=== PATIENT | male | born 1940 | race Caucasian/White ===

== ENCOUNTER → 2016-10-12 | Day surgery (SDC) | payer MEDICARE, OTHER | LOC: RAD 09:43 | PROVIDERS: ATTEND Orthopaedic Surgery | PROC: 05HB33Z Insertion of Infusion Device into Right Basilic Vein, Percutaneous Approach (ICD-10-PCS; principal; 2016-10-12) | DX: M86.042 Acute hematogenous osteomyelitis, left hand (principal) | CPT/HCPCS: 36569; 77001; 76937; J1642 ==

== ENCOUNTER 2019-04-30 09:41 | Inpatient (IN) | payer MEDICARE, OTHER ==
[2019-04-30] MEDS ORDERED: DIPH/PERTUSS(ACELL)/TETANUS VAC/PF 0.5 ML SYR (>=10YO) IM ONE (10:20)
[2019-04-30] MEDS ORDERED: NORMAL SALINE 500 ML IV ONE (10:22)
[2019-04-30 10:25] LABS: ABSOLUTE EOSINOPHILS # (AUTO) 0.2 10^3/uL (0.0-0.6); ABSOLUTE LYMPHOCYTES (AUTO) 1.1 10^3/uL (0.5-4.7); ABSOLUTE MONOCYTES (AUTO) 0.5 10^3/uL (0.1-1.4); ABSOLUTE NEUT (AUTO) 5.5 10^3/uL (1.7-8.2); BASOPHILS % (AUTO) 0.2 % (0-2); EOSINOPHILS % (AUTO) 2.4 % (0-6); HEMATOCRIT 26.7 % (37.9-51.0); HEMOGLOBIN 8.1 g/dL (13.5-17.0); LYMPHOCYTES % (AUTO) 14.6 % (13-45); MEAN CORPUSCULAR HGB CONC 30.3 g/dL (32.0-36.0); MEAN CORPUSCULAR VOLUME 73 fl (80-97); MONOCYTES % (AUTO) 7.1 % (3-13); PLATELET COUNT 221 10^3/uL (150-450); RED BLOOD COUNT 3.66 10^6/uL (4.35-5.55); SEGMENTED NEUTROPHILS % (AUTO) 75.7 % (42-78); TOTAL CELLS COUNTED % (AUTO) 100 %; WHITE BLOOD COUNT 7.3 10^3/uL (4.0-10.5)
--- NOTE | 2019-04-30 10:28 | ER Document Report ---
ED General - General Chief Complaint: Fall Stated Complaint: FALL/LACERATION Time Seen by Provider: 04/30/19 10:05 Primary Care Provider: SARAH BENNETT DO [Primary Care Provider] - Follow up as needed TRAVEL OUTSIDE OF THE [place] IN LAST 30 DAYS: No - HPI Notes: 78-year-old male transported here via EMS after experiencing possible syncopal episode and fall with minor head injury. This gentleman has a history of chronic atrial fibrillation and is on Eliquis and aspirin. He was sitting on a stool in the front of a local [employer] [place] about 30 minutes ago and sa ys that he felt fine at that time. The next thing he knew bystanders were getting him up off the floor and had called EMS reporting he had fallen from the stool. He has no memory of the episode. He denies headache, nausea, or vomiting. EMS noted initial blood pressure 70/30. When they got him in the truck and started IV fluids his systolic was up to 130. He appeared well otherwise during transport other than a superficial laceration of the right eyebrow area. He denies any extremity pain specifically denies hip joint pain or back pain. He denies neck pain. Last tetanus booster is unknown. Patient denies use of cane or walker. Patient denies prior known history of syncope presyncope or falls. Denies any known history of thromboembolic disease. Pertinent prior history: Chronic atrial fibrillation. Multiple past cardiac stents. Recent resection of colorectal cancer by laparoscopic surgery advised him to at [facility]. - Related Data Allergies/Adverse Reactions: No Known Allergies Allergy (Verified 04/30/19 09:52) Past Medical History - General Information source: Patient, Relative, Emergency Med Personnel - Social History Smoking Status: Smoker,Current Status Unk Drug Abuse: None Lives with: Family Family History: CAD - Past Medical History Cardiac Medical History: Reports: Hx Atrial Fibrillation, Hx Coronary Artery Disease Denies: Hx DVT, Hx Pulmonary Embolism Neurological Medical History: Denies: Hx Cerebrovascular Accident, Hx Seizures GI Medical History: Reports: Other - Recent history of surgery for colorectal cancer Musculoskeletal Medical History: Reports Hx Arthritis Past Surgical History: Reports: Other - Laparoscopic surgery for colorectal cancer Review of Systems - Review of Systems Notes: Constitutional: Negative for fever. HENT: Negative for sore throat. Eyes: Negative for visual changes. Cardiovascular: Negative for chest pain. Respiratory: Negative for shortness of breath. Gastrointestinal: Negative for abdominal pain, vomiting or diarrhea. Genitourinary: Negative for dysuria. Musculoskeletal: Negative for back pain. Skin: Negative for rash. Neurological: Negative for headaches, weakness or numbness. 10 point ROS negative except as marked above and in HPI. Physical Exam - Vital signs Vitals: Temp Pulse Resp BP Pulse Ox 97.7 F 68 17 131/70 H 100 04/30/19 09:50 04/30/19 09:50 04/30/19 09:50 04/30/19 09:50 04/30/19 09:50 GENERAL: Well-developed well-nourished elderly man appearing in no acute distress. SKIN: Good turgor no rashes. HEAD: Patient has a 1 cm laceration lateral aspect of the right eyebrow. Crusted blood here with no active bleeding. EYES: PERRLA. EOMI. Conjunctivae and sclerae clear. EARS: CANALS AND TMS CLEAR. NOSE: CLEAR. MOUTH: Moist mucosa. Dentures present. No stridor or edema. No drooling. Throat: Clear NECK: Supple. No masses or thyromegaly. No adenopathy. Carotids 2+ without bruits. No JVD. BACK: Symmetrical without tenderness. CHEST: Respirations unlabored. Breath sounds clear and symmetrical. Pacemaker present left anterior chest wall. HEART: Cardiac rhythm irregularly irregular. No murmur gallop or rub. ABDOMEN: Soft nontender without masses, organomegaly or rebound. Bowel sounds normally active. No bruits. Healed laparoscopy port scars present. GENITALIA: Deferred. EXTREMITIES: Moderate degenerative changes in phalangeal joints both hands area. No edema. No calf tenderness. Cap refill less than 1.5 seconds. Dorsalis pedis and posterior tibial pulses 3+ and symmetrical. NEUROLOGICAL: GCS 15. Alert and oriented x3. Normal gait. Fluent speech. Cranial nerves II through XII intact with exception of moderate hearing impairment bilaterally. Sensory, motor and cerebellar normal. Normal tone. Course - Vital Signs Vital signs: Temp Pulse Resp BP Pulse Ox 97.7 F 68 28 H 133/69 H 99 04/30/19 09:50 04/30/19 09:50 04/30/19 10:05 04/30/19 10:05 04/30/19 10:05 - Laboratory Result Diagrams: 04/30/19 09:40 04/30/19 09:40 Laboratory results interpreted by me: 04/30/19 04/30/19 09:40 09:40 RBC 3.66 L Hgb 8.1 L Hct 26.7 L MCV 73 L MCH 22.0 L MCHC 30.3 L RDW 19.0 H BUN 25 H Creatinine 1.51 H Est GFR ( Amer) 54 L Est GFR (MDRD) Non-Af 45 L Glucose 182 H - EKG Interpretation by Me Rhythm: A.Fib, Other - Rate 70 with intermittent paced beats Additional EKG results interpreted by me: 04/30/19 10:[address] changes. Procedures - Laceration/Wound Repair Right Face Time completed: 13:10 Wound length (cm): 3.5 Wound's Depth, Shape: Superficial, Linear Laceration pre-procedure: Betadine prep applied Wound explored: Clean Irrigated w/ Saline (mLs): 50 Wound Repaired With: Dermabond Complications: No Adult Head Front/Back picture: 1 - 3.5 cm Discharge - Discharge Clinical Impression: Syncope and collapse Anemia Qualifiers: Anemia type: iron deficiency Iron deficiency anemia type: chronic blood loss Qualified Code(s): D50.0 - Iron deficiency anemia secondary to blood loss (chronic) Disposition: ADMITTED INPATIENT Admitting Provider: Yulissa (Hospitalist) Unit Admitted: Telemetry Referrals: SARAH BENNETT DO [Primary Care Provider] - Follow up as needed
[2019-04-30 10:31] LABS: ALBUMIN 4.1 g/dL (3.5-5.0); ALKALINE PHOSPHATASE 91 U/L (38-126); ANION GAP 12 (5-19); ASPARTATE AMINO TRANSFERASE 56 U/L (17-59); BILIRUBIN,DIRECT 0.1 mg/dL (0.0-0.4); BILIRUBIN,TOTAL 0.4 mg/dL (0.2-1.3); BLOOD UREA NITROGEN 25 mg/dL (7-20); CALCIUM 9.4 mg/dL (8.4-10.2); CARBON DIOXIDE 24 mmol/L (22-30); CHLORIDE 105 mmol/L (98-107); CREATINE KINASE 57 U/L (55-170); GLUCOSE 182 mg/dL (75-110); POTASSIUM 4.4 mmol/L (3.6-5.0); TOTAL PROTEIN 7.2 g/dL (6.3-8.2)
[2019-04-30 10:41] LABS: CREATINE KINASE MB 0.89 ng/mL (<4.55); TROPONIN I 0.012 ng/mL
--- NOTE | 2019-04-30 10:52 | RADIOLOGY REPORT (SQ) ---
EXAM DESCRIPTION: CT HEAD WITHOUT COMPLETED DATE/TIME: 04/30/2019 10:27 am REASON FOR STUDY: fall on blood thinner COMPARISON: None. TECHNIQUE: Axial images acquired through the brain without intravenous contrast. Images reviewed wi th bone, brain and subdural windows. Additional sagittal and coronal reconstructions were generated. Images stored on PACS. All CT scanners at this facility use dose modulation, iterative reconstruction, and/or weight based d osing when appropriate to reduce radiation dose to as low as reasonably achievable (ALARA). [facility]: Dose Right [facility]: CareDose [facility]: Dose Right [facility]: Teradose 4D [facility]: Smart [employer] RADIATION DOSE: CT Rad equipment meets quality standard of care and radiation dose reduction techniq ues were employed. CTDIvol: 53.2 mGy. DLP: 991 mGy-cm.mGy. LIMITATIONS: None. FINDINGS: VENTRICLES: Prominent. CEREBRUM: No masses. No hemorrhage. No midline shift. Areas of low density in the white matter mos t likely due to chronic micro-vascular ischemic change. No evidence for acute infarction. CEREBELLUM: No masses. No hemorrhage. No alteration of density. No evidence for acute infarction. EXTRAAXIAL SPACES: Age-related involutional change. No fluid collections. No masses. ORBITS AND GLOBE: No intra- or extraconal masses. Normal contour of globe without masses. CALVARIUM: No fracture. PARANASAL SINUSES: Left maxillary sinus disease. SOFT TISSUES: No mass or hematoma. OTHER: No other significant finding. IMPRESSION: CHRONIC CHANGES OF ATROPHY AND MICROVASCULAR ISCHEMIA. NO ACUTE PROCESS. EVIDENCE OF ACUTE STROKE: NO. TECHNICAL DOCUMENTATION: JOB ID: [id number] Quality ID # [id number]: Final reports with documentation of one or more dose reduction techniques (e.g., Au tomated exposure control, adjustment of the mA and/or kV according to patient size, use of iterative reconstruction technique) 2010 Dr. Z- All Rights Reserved Reading location - IP/workstation name: [email or web address]
--- NOTE | 2019-04-30 10:53 | RADIOLOGY REPORT (SQ) ---
EXAM DESCRIPTION: CT CERVICAL SPINE WITHOUT COMPLETED DATE/TIME: 04/30/2019 10:27 am REASON FOR STUDY: fall on blood thinner COMPARISON: None. TECHNIQUE: Axial images acquired through the cervical spine without intravenous contrast. Images re viewed with lung, soft tissue and bone windows. Reconstructed coronal and sagittal MPR images review ed. Images stored on PACS. All CT scanners at this facility use dose modulation, iterative reconstruction, and/or weight based d osing when appropriate to reduce radiation dose to as low as reasonably achievable (ALARA). [facility]: Dose Right [facility]: CareDose [facility]: Dose Right [facility]: Teradose 4D [facility]: Smart [employer] RADIATION DOSE: CT Rad equipment meets quality standard of care and radiation dose reduction techniq ues were employed. CTDIvol: 18.6 mGy. DLP: 416 mGy-cm. mGy. LIMITATIONS: None. FINDINGS: ALIGNMENT: Anatomic. MINERALIZATION: Normal. VERTEBRAL BODIES: No fractures or dislocation. DISCS: Multilevel disc space narrowing with osteophytes. FACETS, LATERAL MASSES, POSTERIOR ELEMENTS: Facet arthropathy. No fractures. No dislocation. No ac [place] findings. HARDWARE: None in the spine. VISUALIZED RIBS: No fractures. LUNG APICES AND SOFT TISSUES: No significant or acute findings. OTHER: No other significant finding. IMPRESSION: CHRONIC DEGENERATIVE CHANGES. NO ACUTE FINDINGS. TECHNICAL DOCUMENTATION: JOB ID: [id number] Quality ID # [id number]: Final reports with documentation of one or more dose reduction techniques (e.g., Au tomated exposure control, adjustment of the mA and/or kV according to patient size, use of iterative reconstruction technique) 2010 [employer]- All Rights Reserved Reading location - IP/workstation name: [email or web address]
--- NOTE | 2019-04-30 11:08 | RADIOLOGY REPORT (SQ) ---
EXAM DESCRIPTION: CHEST 2 VIEWS COMPLETED DATE/TIME: 04/30/2019 11:00 am REASON FOR STUDY: syncope COMPARISON: None. NUMBER OF VIEWS: Two view. TECHNIQUE: Frontal and lateral radiographic views of the chest acquired. LIMITATIONS: None. FINDINGS: LUNGS AND PLEURA: No opacities, masses or pneumothorax. No pleural effusion. MEDIASTINUM AND HILAR STRUCTURES: No masses. No contour abnormalities. HEART AND VASCULAR STRUCTURES: Heart enlarged without failure. Aorta normal for age. BONES: No acute findings. HARDWARE: Pacemaker. OTHER: No other significant finding. IMPRESSION: CARDIAC ENLARGEMENT WITHOUT FAILURE. TECHNICAL DOCUMENTATION: JOB ID: [id number] [employer]- All Rights Reserved Reading location - IP/workstation name: [email or web address]
[2019-04-30] MEDS ORDERED: MAG HYDROX/AL HYDROX/SIMETH SUSP 30 ML UDCUP PO PRN (13:57)
[2019-04-30] MEDS ORDERED: ACETAMINOPHEN 325 MG TABLET PO PRN (13:57)
[2019-04-30] MEDS ORDERED: ONDANSETRON HCL INJ/PF 4 MG/2 ML SDV IV PRN (13:57)
[2019-04-30 14:29] LABS: APPEARANCE,URINE SLIGHTLY-CLOUDY; BILIRUBIN,URINE NEGATIVE (NEGATIVE); COLOR,URINE AMBER; GLUCOSE, URINE NEGATIVE (NEGATIVE); KETONES,URINE NEGATIVE (NEGATIVE); LEUKOCYTE ESTERASE,URINE MODERATE (NEGATIVE); NITRITE,URINE POSITIVE (NEGATIVE); PROTEIN,URINE 30 mg/dL (NEGATIVE); UROBILINOGEN,URINE NEGATIVE mg/dL (<2.0)
[2019-04-30] MEDS: NORMAL SALINE 1000 ML 1,000 ML IV PRN ×2 (15:35→21:49)
[2019-04-30] MEDS: CEFTRIAXONE 1 GM/D5W RTU 1 GM/50 ML RTUPB IV SCH (15:36)
--- NOTE | 2019-04-30 16:35 | PDOC H&P ---
History of Present Illness Admission Date/PCP: 04/30/19 13:56 SARAH BENNETT DO Patient complains of: Fall, LOC History of Present Illness: DANIELA SHORE is a 78 year old male Past Medical History Cardiac Medical History: Reports: Atrial Fibrillation, Coronary Artery Disease, Hyperlipidema, Hypertension Denies: DVT, Pulmonary Embolism Pulmonary Medical History: Reports: None EENT Medical History: Reports: None Neurological Medical History: Denies: Ischemic CVA, Seizures Endocrine Medical History: Reports: None Renal/ Medical History: Reports: None Malignancy Medical History: Reports: None GI Medical History: Reports: Gastroesophageal Reflux Disease, Other - Recent history of surgery for colorectal cancer Musculoskeltal Medical History: Reports: Arthritis Skin Medical History: Reports: None Psychiatric Medical History: Reports: None Hematology: Reports: None Infectious Medical History: Reports: None Past Surgical History Past Surgical History: Reports: Tonsillectomy, Other - Laparoscopic surgery for colorectal cancer Social History Information Source: Patient, Relative Lives with: Family Smoking Status: Never Smoker Electronic Cigarette use?: No Frequency of Alcohol Use: None Hx Recreational Drug Use: No Drugs: None Hx Prescription Drug Abuse: No - Advance Directive Resuscitation Status: Full Code Family History Family History: CAD Parental Family History Reviewed: Yes Children Family History Reviewed: Yes Sibling(s) Family History Reviewed.: Yes Medication/Allergy Home Medications: Apixaban [Eliquis 5 mg Tablet] 5 mg PO Q12 04/30/19 Aspirin [Ecotrin 81 mg EC Tablet] 81 mg PO DAILY 04/30/19 Carvedilol Phosphate [Coreg CR 20 mg Ext. Release Capsule] 20 mg PO DAILY 04/30/19 Gabapentin [Neurontin 100 mg Capsule] 100 mg PO Q8 04/30/19 Multivit-Mins/Iron/Folic/Lycop [Centrum Men's Tablet] 1 tab PO DAILY 04/30/19 Ranolazine [Ranexa 500 mg Tab.sr] 500 mg PO Q12 04/30/19 Rosuvastatin Calcium [Crestor 20 mg Tablet] 20 mg PO QHS 04/30/19 Tamsulosin HCl [Flomax 0.4 mg Cap.sr] 0.4 mg PO DAILY 04/30/19 Allergies/Adverse Reactions: No Known Allergies Allergy (Verified 04/30/19 09:52) Review of Systems Constitutional: PRESENT: fever(s). ABSENT: chills, headache(s), weight gain, weight loss Eyes: ABSENT: visual disturbances Ears: ABSENT: hearing changes Cardiovascular: ABSENT: chest pain, dyspnea on exertion, edema, orthropnea, palpitations Respiratory: ABSENT: cough, hemoptysis Gastrointestinal: ABSENT: abdominal pain, constipation, diarrhea, hematemesis, hematochezia, nausea, vomiting Genitourinary: ABSENT: dysuria, hematuria Musculoskeletal: ABSENT: joint swelling Integumentary: ABSENT: rash, wounds Neurological: PRESENT: as per HPI. ABSENT: abnormal gait, abnormal speech, confusion, dizziness, focal weakness, syncope Psychiatric: ABSENT: anxiety, depression, homidical ideation, suicidal ideation Endocrine: ABSENT: cold intolerance, heat intolerance, polydipsia, polyuria Hematologic/Lymphatic: ABSENT: easy bleeding, easy bruising Physical Exam Vital Signs: Temp Pulse Resp BP Pulse Ox 97.7 F 68 22 H 139/75 H 94 04/30/19 09:50 04/30/19 09:50 04/30/19 14:01 04/30/19 13:00 04/30/19 14:00 Intake & Output 04/29/19 04/30/19 05/01/19 06:59 06:59 06:59 Intake Total 500 Balance 500 Weight 91.9 kg General appearance: PRESENT: no acute distress, cooperative, hard of hearing, well-developed, well-nourished - overweight Head exam: PRESENT: atraumatic, normocephalic Eye exam: PRESENT: conjunctiva pink, EOMI, PERRLA. ABSENT: scleral icterus Ear exam: PRESENT: normal external ear exam Mouth exam: PRESENT: moist, tongue midline Neck exam: ABSENT: carotid bruit, JVD, lymphadenopathy, thyromegaly Respiratory exam: PRESENT: clear to auscultation delfino, symmetrical, unlabored, other - room air. ABSENT: rales, rhonchi, wheezes Cardiovascular exam: PRESENT: RRR - Paced rhythm, +S1, +S2. ABSENT: diastolic murmur, rubs, systolic murmur Pulses: PRESENT: normal dorsalis pedis pul Vascular exam: PRESENT: normal capillary refill GI/Abdominal exam: PRESENT: normal bowel sounds, soft. ABSENT: distended, guarding, mass, organolmegaly, rebound, tenderness Rectal exam: PRESENT: deferred Extremities exam: PRESENT: full ROM. ABSENT: calf tenderness, clubbing, pedal edema Neurological exam: PRESENT: alert, awake, oriented to person, oriented to place, oriented to time, oriented to situation, CN II-XII grossly intact, other - Slight forgetfulness/repetative. ABSENT: motor sensory deficit Psychiatric exam: PRESENT: appropriate affect, normal mood. ABSENT: homicidal ideation, suicidal ideation Skin exam: PRESENT: dry, warm. ABSENT: cyanosis, intact - Rt eyebrow lac s/p dermabond, rash Results Laboratory Results: 04/30/19 09:40 04/30/19 09:40 04/30/19 04/30/19 04/30/19 09:40 09:40 14:10 WBC 7.3 RBC 3.66 L Hgb 8.1 L Hct 26.7 L MCV 73 L MCH 22.0 L MCHC 30.3 L RDW 19.0 H Plt Count 221 Seg Neutrophils % 75.7 Sodium 141.3 Potassium 4.4 Chloride 105 Carbon Dioxide 24 Anion Gap 12 BUN 25 H Creatinine 1.51 H Est GFR ( Amer) 54 L Glucose 182 H Calcium 9.4 Total Bilirubin 0.4 AST 56 Alkaline Phosphatase 91 Total Protein 7.2 Albumin 4.1 Urine Color REINA Urine Appearance SLIGHTLY-CLOUDY Urine pH 6.0 Ur Specific Dow 1.020 Urine Protein 30 H Urine Glucose (UA) NEGATIVE Urine Ketones NEGATIVE Urine Blood NEGATIVE Urine Nitrite POSITIVE H Ur Leukocyte Esterase MODERATE H Urine WBC (Auto) >182 Urine RBC (Auto) 3 04/30/19 04/30/19 09:40 09:40 Creatine Kinase 57 CK-MB (CK-2) 0.89 Troponin I 0.012 Impressions: Cervical Spine CT 04/30/19 00:00 IMPRESSION: CHRONIC DEGENERATIVE CHANGES. NO ACUTE FINDINGS. Head CT 04/30/19 00:00 IMPRESSION: CHRONIC CHANGES OF ATROPHY AND MICROVASCULAR ISCHEMIA. NO ACUTE PROCESS. EVIDENCE OF ACUTE STROKE: NO. Chest X-Ray 04/30/19 10:21 IMPRESSION: CARDIAC ENLARGEMENT WITHOUT FAILURE. Assessment and Plan - Diagnosis (1) Syncope and collapse Is this a current diagnosis for this admission?: Yes Plan: Multifactorial; secondary to urinary tract infection, MAGI, dehydration, and possibly anemia. Patient reports that he was sitting on a stool when he suddenly felt flushed and overheated, he thinks he remembers beginning to take off his jacket and then awoke with EMS on scene. Unclear LOC. Per EMS report, initial blood pressures were 80/50 but with normal heart rate. No reported seizure activity. Patient denies dyspnea, palpitations, chest pain. Head CT is negative for acute CVA; symmetry, slurred speech, or focal deficits. No suspicion for TIA/CVA. He is found to have anemia with hemoglobin of 8.1. He is noted to have urinary tract infection by urinalysis. Laboratory evaluation indicates MAGI with dehydration. Patient is admitted to the floor on continuous cardiac telemetry We will obtain orthostatic blood pressures. Continue IV fluids. Recommend close cardiac follow-up for consideration of echocardiogram. Will interrogate pacemaker. Fall precautions. (2) UTI (urinary tract infection) Qualifiers: Urinary tract infection type: acute cystitis Hematuria presence: without hematuria Qualified Code(s): N30.00 - Acute cystitis without hematuria Is this a current diagnosis for this admission?: Yes Plan: Urinalysis positive for UTI. Blood and Urine Cultures are pending Will continue gentle IVF. Start empiric treatment with IV Rocephin. (3) Anemia Qualifiers: Anemia type: unspecified type Qualified Code(s): D64.9 - Anemia, unspecified Is this a current diagnosis for this admission?: Yes Plan: Hgb 8.1; unknown baseline Unclear cause. Patient did have recent procedure for colorectal cancer. Also noted to be on chronic anticoagulation for afib. Will check occult stool. Will obtain anemia panel with a.m lab work. No evidence of active bleeding at this time. Will monitor and transfuse as indicated. (4) MAGI (acute kidney injury) Is this a current diagnosis for this admission?: Yes Plan: Creatinine of 1.51, BUN 25; unknown baseline. Possibly prerenal as patient has urinary tract infection with a specific gravity 1.020 indicating slight dehydration. May also be related to hypotension following his syncopal event; per EMS report initial vital signs were 80s/50s. Continue IV fluids. Avoid nephrotoxic medications as able. Daily chemistries. (5) CAD (coronary artery disease) Qualifiers: Coronary Disease-Associated Artery/Lesion type: bypass graft Is this a current diagnosis for this admission?: Yes Plan: No active chest pain. EKG shows paced rhythm. Troponin negative. We will continue the patient's home medication regiment of aspirin, Eliquis, statin, carvedilol and Ranexa. Cardiac diet. - Time Time Spent with patient: 35 or more minutes Medications reviewed and adjusted accordingly: Yes Anticipated discharge: Home Within: within 24 hours
[2019-04-30] MEDS ORDERED: INFLUENZA QUAD (6MOS+) 2019-20 VAC 0.5 ML SYR IM ONE (20:56)
[2019-04-30] MEDS: RANOLAZINE 500 MG TAB.SR.12H PO SCH (21:39)
[2019-04-30] MEDS: GABAPENTIN 100 MG CAPSULE PO SCH (21:39)
[2019-04-30] MEDS: ATORVASTATIN CALCIUM 40 MG TABLET PO SCH (21:39)
[2019-04-30] MEDS: CARVEDILOL 6.25 MG TABLET PO SCH (21:39)
[2019-04-30] MEDS ORDERED: APIXABAN 5 MG TABLET PO ONE (22:00)
[2019-04-30] MEDS ORDERED: APIXABAN 5 MG TABLET PO SCH (22:00)
--- NOTE | 2019-04-30 23:25 | EKG REPORT ---
SEVERITY:- ABNORMAL ECG - AFIB/FLUTTER AND VENTRICULAR-PACED RHYTHM : Confirmed by: Davidson Amanda 30-Apr-2019 23:24:47
[2019-05-01] MEDS: NORMAL SALINE 1000 ML 1,000 ML IV PRN (03:06)
[2019-05-01 05:02] LABS: MEAN CORPUSCULAR HEMOGLOBIN 22.5 pg (27.0-33.4); MEAN CORPUSCULAR HGB CONC 31.3 g/dL (32.0-36.0); MEAN CORPUSCULAR VOLUME 72 fl (80-97); PLATELET COUNT 143 10^3/uL (150-450); RED BLOOD COUNT 2.92 10^6/uL (4.35-5.55); RED CELL DISTRIBUTION WIDTH 18.7 % (11.5-14.0); WHITE BLOOD COUNT 5.4 10^3/uL (4.0-10.5)
[2019-05-01 05:04] LABS: ANION GAP 7 (5-19); BLOOD UREA NITROGEN 25 mg/dL (7-20); CALCIUM 8.6 mg/dL (8.4-10.2); CARBON DIOXIDE 26 mmol/L (22-30); CHLORIDE 109 mmol/L (98-107); GLUCOSE 103 mg/dL (75-110); IRON(TIBC) 12.8 ug/dL (49-181); POTASSIUM 3.9 mmol/L (3.6-5.0)
[2019-05-01 05:05] LABS: HEMOGLOBIN 6.6 g/dL (13.5-17.0)
[2019-05-01 05:06] LABS: RETICULOCYTE COUNT (AUTO) 2.25 % (0.66-2.85)
[2019-05-01] MEDS: GABAPENTIN 100 MG CAPSULE PO SCH ×3 (05:57→21:24)
[2019-05-01] MEDS: CARVEDILOL 6.25 MG TABLET PO SCH ×2 (09:28→21:24)
[2019-05-01] MEDS: RANOLAZINE 500 MG TAB.SR.12H PO SCH ×2 (09:28→21:23)
[2019-05-01] MEDS: MULTIVITAMIN TABLET PO SCH (09:29)
[2019-05-01] MEDS: ASPIRIN 81 MG TABLET, ENT COATED PO SCH (09:29)
[2019-05-01] MEDS: DOCUSATE SODIUM 100 MG CAPSULE PO SCH (09:31)
[2019-05-01] MEDS ORDERED: TAMSULOSIN HCL 0.4 MG CAP.SR.24H PO SCH (10:00)
--- NOTE | 2019-05-01 16:13 | PDOC PROGRESS REPORT ---
Subjective Progress Note for:: 05/01/19 Subjective:: Patient is an 78 year old male with a past medical history significant for a. fib, CAD, AICD, HTN, HLD, GERD, and arthritis who was admitted 04/30/19 for syncopal episode. Patient was seen on morning rounds. He was found resting in bed comfortably on room air. He is A&Ox4. He states he is feeling well. He reports slight fatigue, but denies all other symptoms. He denies fever, chills, chest pain, palpitations, dyspnea, orthopnea, abdominal pain, nausea, and vomiting. He denies recent melena, hematochezia. He has no new questions or concerns. Reviewed POC with nursing. Reason For Visit: UTI,ANEMIA,MAGI,SYNCOPE Physical Exam Vital Signs: Temp Pulse Resp BP Pulse Ox 98.3 F 71 18 120/56 L 93 05/01/19 08:06 05/01/19 08:06 05/01/19 08:06 05/01/19 08:06 05/01/19 08:06 Intake & Output 04/30/19 05/01/19 05/02/19 06:59 06:59 06:59 Intake Total 1988 356 Output Total 0 200 Balance 1988 156 Weight 90.5 kg General appearance: PRESENT: no acute distress, cooperative, well-developed, well-nourished - overweight Head exam: PRESENT: atraumatic, normocephalic Eye exam: PRESENT: conjunctiva pink, EOMI, PERRLA. ABSENT: scleral icterus Ear exam: PRESENT: normal external ear exam Mouth exam: PRESENT: moist, tongue midline Respiratory exam: PRESENT: clear to auscultation delfino, symmetrical, unlabored. ABSENT: rales, rhonchi, wheezes Cardiovascular exam: PRESENT: RRR, +S1, +S2. ABSENT: diastolic murmur, rubs, systolic murmur Vascular exam: PRESENT: normal capillary refill GI/Abdominal exam: PRESENT: normal bowel sounds, soft. ABSENT: distended, guarding, mass, organolmegaly, rebound, tenderness Rectal exam: PRESENT: deferred Extremities exam: PRESENT: full ROM. ABSENT: calf tenderness, clubbing, pedal edema Neurological exam: PRESENT: alert, awake, oriented to person, oriented to place, oriented to time, oriented to situation, CN II-XII grossly intact. ABSENT: motor sensory deficit Psychiatric exam: PRESENT: appropriate affect, normal mood. ABSENT: homicidal ideation, suicidal ideation Skin exam: PRESENT: dry, intact, pallor, warm. ABSENT: cyanosis, rash Results Laboratory Results: 05/01/19 04:19 05/01/19 04:14 05/01/19 05/01/19 05/01/19 04:14 04:19 06:16 WBC 5.4 RBC 2.92 L Hgb 6.6 L Hct 21.0 L MCV 72 L MCH 22.5 L MCHC 31.3 L RDW 18.7 H Plt Count 143 L Retic Count (auto) 2.25 Sodium 142.3 Potassium 3.9 Chloride 109 H Carbon Dioxide 26 Anion Gap 7 BUN 25 H Creatinine 1.27 H Est GFR ( Amer) > 60 Glucose 103 Calcium 8.6 Iron 12.8 L TIBC 371 % Saturation 3 Ferritin 10.40 L Vitamin B12 254.0 Folate 13.70 Blood Type O POSITIVE Antibody Screen NEGATIVE 04/30/19 04/30/19 09:40 09:40 Creatine Kinase 57 CK-MB (CK-2) 0.89 Troponin I 0.012 Impressions: Cervical Spine CT 04/30/19 00:00 IMPRESSION: CHRONIC DEGENERATIVE CHANGES. NO ACUTE FINDINGS. Head CT 04/30/19 00:00 IMPRESSION: CHRONIC CHANGES OF ATROPHY AND MICROVASCULAR ISCHEMIA. NO ACUTE PROCESS. EVIDENCE OF ACUTE STROKE: NO. Chest X-Ray 04/30/19 10:21 IMPRESSION: CARDIAC ENLARGEMENT WITHOUT FAILURE. Assessment and Plan - Diagnosis (1) Syncope and collapse Is this a current diagnosis for this admission?: Yes Plan: Multifactorial; secondary to urinary tract infection, MAGI, dehydration, and possibly anemia. Patient reports that he was sitting on a stool when he suddenly felt flushed and overheated, he thinks he remembers beginning to take off his jacket and then awoke with EMS on scene. Unclear LOC. Per EMS report, initial blood pressures were 80/50 but with normal heart rate. No reported seizure activity. Patient denies dyspnea, palpitations, chest pain. Head CT is negative for acute CVA; symmetry, slurred speech, or focal deficits. No suspicion for TIA/CVA. Patient is admitted to the floor on continuous cardiac telemetry Orthostatic blood pressures have resolved. Continue IV fluids. 2 units PRBC today for anemia Antibiotics for UTI as below. Recommend close cardiac follow-up for consideration of echocardiogram. Will interrogate pacemaker. PT consulted. Fall precautions. (2) UTI (urinary tract infection) Qualifiers: Urinary tract infection type: acute cystitis Hematuria presence: without hematuria Qualified Code(s): N30.00 - Acute cystitis without hematuria Is this a current diagnosis for this admission?: Yes Plan: Urinalysis positive for UTI. Blood cultures are negative Urine Cultures show gram negative rods. Will continue gentle IVF. Start empiric treatment with IV Rocephin. (3) Anemia Qualifiers: Anemia type: unspecified type Qualified Code(s): D64.9 - Anemia, unspecified Is this a current diagnosis for this admission?: Yes Plan: Hgb 8.1; trended down to 6.6 with fluid resuscitation. Anemia panel demonstrates iron deficiency anemia. Patient did have recent procedure for colorectal cancer. Also noted to be on chronic anticoagulation for afib. No evidence of active bleeding at this time. Will check occult stool. Hold Eliquis. 2 units PRBC today. IV Feraheme tomorrow. Will continue to monitor and transfuse as indicated. (4) MAGI (acute kidney injury) Is this a current diagnosis for this admission?: Yes Plan: Improved; Creatinine of 1.51/BUN 25 -> 1.27/25 Continue IV fluids. Avoid nephrotoxic medications as able. Daily chemistries. (5) CAD (coronary artery disease) Qualifiers: Coronary Disease-Associated Artery/Lesion type: bypass graft Is this a current diagnosis for this admission?: Yes Plan: No active chest pain. EKG shows paced rhythm. Troponin negative. We will continue the patient's home medication regiment of aspirin, Eliquis, statin, carvedilol and Ranexa. Cardiac diet. - Time Time Spent with patient: 25-34 minutes Medications reviewed and adjusted accordingly: Yes Anticipated discharge: Home with Homehealth Within: within 48 hours - Inpatient Certification Based on my medical assessment, after consideration of the patient's comorbidities, presenting symptoms, or acuity I expect that the services needed warrant INPATIENT care.: Yes I certify that my determination is in accordance with my understanding of Medicare's requirements for reasonable and necessary INPATIENT services [42 CFR 412.3e].: Yes Medical Necessity: Need For IV Fluids, Need for IV Antibiotics, Risk of Diagnosis Which Will Require Inpatient Eval/Care/Monitoring
[2019-05-01] MEDS: CEFTRIAXONE 1 GM/D5W RTU 1 GM/50 ML RTUPB IV SCH (20:46)
[2019-05-01] MEDS: ATORVASTATIN CALCIUM 40 MG TABLET PO SCH (21:23)
[2019-05-02] MEDS: NORMAL SALINE 1000 ML 1,000 ML IV PRN ×2 (03:00→16:52)
[2019-05-02] MEDS: GABAPENTIN 100 MG CAPSULE PO SCH ×2 (05:26→18:25)
[2019-05-02 05:54] LABS: HEMATOCRIT 26.5 % (37.9-51.0); HEMOGLOBIN 8.4 g/dL (13.5-17.0); MEAN CORPUSCULAR HEMOGLOBIN 23.9 pg (27.0-33.4); MEAN CORPUSCULAR HGB CONC 31.6 g/dL (32.0-36.0); PLATELET COUNT 129 10^3/uL (150-450); RED CELL DISTRIBUTION WIDTH 20.1 % (11.5-14.0); WHITE BLOOD COUNT 5.1 10^3/uL (4.0-10.5)
[2019-05-02 05:55] LABS: MEAN CORPUSCULAR VOLUME 76 fl (80-97)
[2019-05-02 06:06] LABS: ANION GAP 7 (5-19); BLOOD UREA NITROGEN 18 mg/dL (7-20); CALCIUM 8.5 mg/dL (8.4-10.2); CARBON DIOXIDE 26 mmol/L (22-30); CHLORIDE 109 mmol/L (98-107); GLUCOSE 95 mg/dL (75-110); POTASSIUM 4.1 mmol/L (3.6-5.0)
[2019-05-02] MEDS ORDERED: FERUMOXYTOL 510 MG in NORMAL SALINE 100 ML IV ONE (08:00)
[2019-05-02] MEDS: DOCUSATE SODIUM 100 MG CAPSULE PO SCH (09:31)
[2019-05-02] MEDS: CARVEDILOL 6.25 MG TABLET PO SCH ×2 (09:31→22:25)
[2019-05-02] MEDS: RANOLAZINE 500 MG TAB.SR.12H PO SCH ×2 (09:32→22:25)
[2019-05-02] MEDS: ASPIRIN 81 MG TABLET, ENT COATED PO SCH (09:32)
[2019-05-02] MEDS: MULTIVITAMIN TABLET PO SCH (09:32)
--- NOTE | 2019-05-02 10:04 | PDOC PROGRESS REPORT ---
Subjective Progress Note for:: 05/02/19 Reason For Visit: UTI,ANEMIA,MAGI,SYNCOPE 05/02/2019 Patient admitted for syncope and anemia. She received 2 units of packed red cells yesterday. She did have heme positive stools tested. Patient was just seen in [place] and was given "a clean bill of health" during his colorectal cancer according to the patient. Physical Exam Vital Signs: Temp Pulse Resp BP Pulse Ox 98.1 F 69 19 144/74 H 100 05/02/19 07:00 05/02/19 07:00 05/02/19 07:00 05/02/19 07:00 05/02/19 07:00 Intake & Output 05/01/19 05/02/19 05/03/19 06:59 06:59 06:59 Intake Total 1988 2806 Output Total 0 1025 Balance 1988 1781 Weight 90.5 kg General appearance: PRESENT: no acute distress, other - Patient sitting up talking in full sentences Respiratory exam: PRESENT: clear to auscultation delfino. ABSENT: rales, rhonchi, wheezes Cardiovascular exam: PRESENT: RRR. ABSENT: diastolic murmur, rubs, systolic murmur Neurological exam: PRESENT: alert, awake, oriented to person, oriented to place, oriented to time, oriented to situation, CN II-XII grossly intact, other - No evidence of dementia in speaking with the patient. ABSENT: motor sensory deficit Psychiatric exam: PRESENT: appropriate affect, normal mood. ABSENT: homicidal ideation, suicidal ideation Results Laboratory Results: 05/02/19 05:10 05/02/19 05:10 05/01/19 05/01/19 05/02/19 06:16 17:30 05:10 WBC 5.1 RBC 3.50 L Hgb 8.4 L Hct 26.5 L MCV 76 L D MCH 23.9 L MCHC 31.6 L RDW 20.1 H Plt Count 129 L Sodium Potassium Chloride Carbon Dioxide Anion Gap BUN Creatinine Est GFR ( Amer) Glucose Calcium Stool Occult Blood POSITIVE Blood Type O POSITIVE Antibody Screen NEGATIVE 05/02/19 05:10 WBC RBC Hgb Hct MCV MCH MCHC RDW Plt Count Sodium 142.2 Potassium 4.1 Chloride 109 H Carbon Dioxide 26 Anion Gap 7 BUN 18 Creatinine 1.09 Est GFR ( Amer) > 60 Glucose 95 Calcium 8.5 Stool Occult Blood Blood Type Antibody Screen 04/30/19 15:35 Blood Blood Culture (PCR) - Final Staphylococcus Species 04/30/19 04/30/19 09:40 09:40 Creatine Kinase 57 CK-MB (CK-2) 0.89 Troponin I 0.012 Impressions: Cervical Spine CT 04/30/19 00:00 IMPRESSION: CHRONIC DEGENERATIVE CHANGES. NO ACUTE FINDINGS. Head CT 04/30/19 00:00 IMPRESSION: CHRONIC CHANGES OF ATROPHY AND MICROVASCULAR ISCHEMIA. NO ACUTE PROCESS. EVIDENCE OF ACUTE STROKE: NO. Chest X-Ray 04/30/19 10:21 IMPRESSION: CARDIAC ENLARGEMENT WITHOUT FAILURE. Assessment and Plan - Plan Summary Summary: 05/02/2019 Globin has come up to 8.4 following 2 units of packed red cells. Her to this it was 6.6. She will need this work-up completed when he is discharged. Platelets have also drifted down on admission 221,000 now down to 129,000. Chemistry panel is basically stable Urine culture is growing out gram-negative rods, sensitivities are pending. Patiently currently on Rocephin DC his Flomax at his cardiology recommendation. Was concerned that this may have been 1 of the causes for hypotension. Also will decrease his gabapentin down to twice daily from 3 times daily dosing. Patient was on Eliquis for his chronic atrial fib but this was discontinued when he came in and was found to be anemic, needing blood transfusion Patient's blood pressures are currently stable and have been so throughout his hospitalization. O2 sat 100% on room air Discharge planning is working with the patient to prepare for discharge - Time Time Spent with patient: 25-34 minutes
[2019-05-02] MEDS: CEFTRIAXONE 1 GM/D5W RTU 1 GM/50 ML RTUPB IV SCH (16:51)
[2019-05-02] MEDS: ATORVASTATIN CALCIUM 40 MG TABLET PO SCH (22:25)
[2019-05-03] MEDS: NORMAL SALINE 1000 ML 1,000 ML IV PRN (02:14)
[2019-05-03] MEDS: GABAPENTIN 100 MG CAPSULE PO SCH (07:26)
[2019-05-03] MEDS: RANOLAZINE 500 MG TAB.SR.12H PO SCH (10:10)
[2019-05-03] MEDS: ASPIRIN 81 MG TABLET, ENT COATED PO SCH (10:11)
[2019-05-03] MEDS: MULTIVITAMIN TABLET PO SCH (10:11)
[2019-05-03] MEDS: CARVEDILOL 6.25 MG TABLET PO SCH (10:11)
[2019-05-03] MEDS: DOCUSATE SODIUM 100 MG CAPSULE PO SCH (10:12)
--- NOTE | 2019-05-03 13:42 | PDOC DISCHARGE SUMMARY ---
Impression - Admit/DC Date/PCP Admission Date/Primary Care Provider: 05/01/19 07:47 SARAH BENNETT, Discharge Date: 05/03/19 - Discharge Diagnosis (1) Hematest positive stools Is this a current diagnosis for this admission?: Yes (2) On anticoagulant therapy Is this a current diagnosis for this admission?: Yes (3) Atrial fibrillation, chronic Is this a current diagnosis for this admission?: Yes (4) MAGI (acute kidney injury) Is this a current diagnosis for this admission?: Yes (5) Anemia Is this a current diagnosis for this admission?: Yes (6) CAD (coronary artery disease) Is this a current diagnosis for this admission?: Yes (7) Syncope and collapse Is this a current diagnosis for this admission?: Yes (8) UTI (urinary tract infection) Is this a current diagnosis for this admission?: Yes - Assessment Summary: 05/02/2019 Hemoglobin has come up to 8.4 following 2 units of packed red cells. Prior to this it was 6.6. He will need this work-up completed when he is discharged. Platelets have also drifted down on admission 221,000 now down to 129,000. Chemistry panel is basically stable Urine culture is growing out gram-negative rods, sensitivities are pending. Patiently currently on Rocephin DC his Flomax at his cardiology recommendation. Was concerned that this may have been one of the causes for hypotension. Also will decrease his gabapentin down to twice daily from 3 times daily dosing. Patient was on Eliquis for his chronic atrial fib but this was discontinued when he came in and was found to be anemic, needing blood transfusion Patient's blood pressures are currently stable and have been so throughout his hospitalization. O2 sat 100% on room air Discharge planning is working with the patient to prepare for discharge. 05/03/2019 Patient was discharged home today. I spent a great deal of time in the room talking to the patient and his who had multiple questions. I would like him to stay on one enteric-coated aspirin daily, consult cardiology, Dr. Heaton, about whether or not to restart Eliquis for his chronic atrial fib in light of his anemia and heme positive stools. He was sent home on Bactrim DS 6 tablets 1 twice daily for the next 3 days. Will be a total of 7-day treatment [place] care provider is for his anemia and his heme positive stools. It was discussed with he and his . Patient's Flomax will be discontinued due to the possibility of hypotension Patient's gabapentin will be decreased to 1 tablet twice daily x1 week then 1 tablet daily x1 week then stop. He is not on this for any known medical reason at the present time Patient appears to be medically stable for discharge - Additional Information Resuscitation Status: Full Code Discharge Diet: As Tolerated Discharge Activity: Balance Activity w/Rest Referrals: SARAH BENNETT DO [Primary Care Provider] - 05/11/19 10:40 am ([facility]. ) MIKE HEATON MD [[facility]] - 05/04/19 2:45 pm Prescriptions: Sulfamethoxazole/Trimethoprim [Bactrim Ds Tablet] 1 each PO BID 3 Days #6 tablet Gabapentin [Neurontin 100 mg Capsule] 100 mg PO BID 14 Days #21 Home Medications: Aspirin [Ecotrin 81 mg EC Tablet] 81 mg PO DAILY 04/30/19 Carvedilol Phosphate [Coreg CR 20 mg Ext. Release Capsule] 20 mg PO DAILY 04/30/19 Multivit-Mins/Iron/Folic/Lycop [Centrum Men's Tablet] 1 tab PO DAILY 04/30/19 Ranolazine [Ranexa 500 mg Tab.sr] 500 mg PO Q12 04/30/19 Rosuvastatin Calcium [Crestor 20 mg Tablet] 20 mg PO QHS 04/30/19 Gabapentin [Neurontin 100 mg Capsule] 100 mg PO BID 14 Days #21 05/03/19 Sulfamethoxazole/Trimethoprim [Bactrim Ds Tablet] 1 each PO BID 3 Days #6 tablet 05/03/19 History of Present Illiness History of Present Illness: DANIELA SHORE is a 78 year old male Physical Exam Vital Signs: Temp Pulse Resp BP Pulse Ox 98.2 F 70 18 148/76 H 98 05/03/19 08:11 05/03/19 08:11 05/03/19 08:11 05/03/19 08:11 05/03/19 08:11 Intake & Output 05/02/19 05/03/19 05/04/19 06:59 06:59 06:59 Intake Total 2806 3342 Output Total 1025 200 Balance 1781 3142 Results Laboratory Results: WBC 5.1 10^3/uL (4.0-10.5) 05/02/19 05:10 RBC 3.50 10^6/uL (4.35-5.55) L 05/02/19 05:10 Hgb 8.4 g/dL (13.5-17.0) L 05/02/19 05:10 Hct 26.5 % (37.9-51.0) L 05/02/19 05:10 MCV 76 fl (80-97) L D 05/02/19 05:10 MCH 23.9 pg (27.0-33.4) L 05/02/19 05:10 MCHC 31.6 g/dL (32.0-36.0) L 05/02/19 05:10 RDW 20.1 % (11.5-14.0) H 05/02/19 05:10 Plt Count 129 10^3/uL (150-450) L 05/02/19 05:10 Lymph % (Auto) 14.6 % (13-45) 04/30/19 09:40 [place] % (Auto) 7.1 % (3-13) 04/30/19 09:40 Eos % (Auto) 2.4 % (0-6) 04/30/19 09:40 Baso % (Auto) 0.2 % (0-2) 04/30/19 09:40 Absolute Neuts (auto) 5.5 10^3/uL (1.7-8.2) 04/30/19 09:40 Absolute Lymphs (auto) 1.1 10^3/uL (0.5-4.7) 04/30/19 09:40 Absolute Monos (auto) 0.5 10^3/uL (0.1-1.4) 04/30/19 09:40 Absolute Eos (auto) 0.2 10^3/uL (0.0-0.6) 04/30/19 09:40 Absolute Basos (auto) 0.0 10^3/uL (0.0-0.2) 04/30/19 09:40 Seg Neutrophils % 75.7 % (42-78) 04/30/19 09:40 Retic Count (auto) 2.25 % (0.66-2.85) 05/01/19 04:19 Sodium 142.2 mmol/L (137-145) 05/02/19 05:10 Potassium 4.1 mmol/L (3.6-5.0) 05/02/19 05:10 Chloride 109 mmol/L (98-107) H 05/02/19 05:10 Carbon Dioxide 26 mmol/L (22-30) 05/02/19 05:10 Anion Gap 7 (5-19) 05/02/19 05:10 BUN 18 mg/dL (7-20) 05/02/19 05:10 Creatinine 1.09 mg/dL (0.52-1.25) 05/02/19 05:10 Est GFR ( Amer) > 60 (>60) 05/02/19 05:10 Est GFR (MDRD) Non-Af > 60 (>60) 05/02/19 05:10 Glucose 95 mg/dL (75-110) 05/02/19 05:10 Calcium 8.5 mg/dL (8.4-10.2) 05/02/19 05:10 Iron 12.8 ug/dL (49-181) L 05/01/19 04:14 TIBC 371 ug/dL (250-450) 05/01/19 04:14 % Saturation 3 % 05/01/19 04:14 Ferritin 10.40 ng/mL (17.9-464.0) L 05/01/19 04:14 Total Bilirubin 0.4 mg/dL (0.2-1.3) 04/30/19 09:40 Direct Bilirubin 0.1 mg/dL (0.0-0.4) 04/30/19 09:40 Neonat Total Bilirubin Not Reportable 04/30/19 09:40 Neonat Direct Bilirubin Not Reportable 04/30/19 09:40 Neonat Indirect Bili Not Reportable 04/30/19 09:40 AST 56 U/L (17-59) 04/30/19 09:40 ALT 53 U/L (<50) 04/30/19 09:40 Alkaline Phosphatase 91 U/L (38-126) 04/30/19 09:40 Creatine Kinase 57 U/L (55-170) 04/30/19 09:40 CK-MB (CK-2) 0.89 ng/mL (<4.55) 04/30/19 09:40 Troponin I 0.012 ng/mL 04/30/19 09:40 Total Protein 7.2 g/dL (6.3-8.2) 04/30/19 09:40 Albumin 4.1 g/dL (3.5-5.0) 04/30/19 09:40 Vitamin B12 254.0 pg/mL (239-931) 05/01/19 04:14 Folate 13.70 ng/mL (>2.76) 05/01/19 04:14 Urine Color REINA 04/30/19 14:10 Urine Appearance SLIGHTLY-CLOUDY 04/30/19 14:10 Urine pH 6.0 (5.0-9.0) 04/30/19 14:10 Ur Specific [place] 1.020 04/30/19 14:10 Urine Protein 30 mg/dL (NEGATIVE) H 04/30/19 14:10 Urine Glucose (UA) NEGATIVE mg/dL (NEGATIVE) 04/30/19 14:10 Urine Ketones NEGATIVE mg/dL (NEGATIVE) 04/30/19 14:10 Urine Blood NEGATIVE (NEGATIVE) 04/30/19 14:10 Urine Nitrite POSITIVE (NEGATIVE) H 04/30/19 14:10 Urine Bilirubin NEGATIVE (NEGATIVE) 04/30/19 14:10 Urine Urobilinogen NEGATIVE mg/dL (<2.0) 04/30/19 14:10 Ur Leukocyte Esterase MODERATE (NEGATIVE) H 04/30/19 14:10 Urine WBC (Auto) >182 /HPF 04/30/19 14:10 Urine RBC (Auto) 3 /HPF 04/30/19 14:10 U Hyaline Cast (Auto) 12 /LPF 04/30/19 14:10 Urine Bacteria (Auto) TRACE /HPF 04/30/19 14:10 Urine Mucus (Auto) RARE /LPF 04/30/19 14:10 Urine Ascorbic Acid 40 (NEGATIVE) H 04/30/19 14:10 Stool Occult Blood POSITIVE (NEGATIVE) 05/01/19 17:30 Blood Type O POSITIVE 05/01/19 06:16 Blood Type Confirm O POSITIVE 05/01/19 07:40 Antibody Screen NEGATIVE 05/01/19 06:16 Crossmatch See Detail 05/01/19 06:16 04/30/19 09:40 CK-MB (CK-2) 0.89 Troponin I 0.012 Impressions: Cervical Spine CT 04/30/19 00:00 IMPRESSION: CHRONIC DEGENERATIVE CHANGES. NO ACUTE FINDINGS. Head CT 04/30/19 00:00 IMPRESSION: CHRONIC CHANGES OF ATROPHY AND MICROVASCULAR ISCHEMIA. NO ACUTE PROCESS. EVIDENCE OF ACUTE STROKE: NO. Chest X-Ray 04/30/19 10:21 IMPRESSION: CARDIAC ENLARGEMENT WITHOUT FAILURE. Stroke Is this a Stroke Patient?: No Acute Heart Failure - Is this a Heart Failure Patient?: No
[2019-05-03 13:53] VITALS: BP 103/52
== END 2019-05-03 14:30 | disposition home or self-care (01) | DRG 690 ==
LOC: ER 09:41 → EH 13:56 → INTOOBSV 13:56 → 4S 19:30 → OBSVTOIN 05-01 07:47
PROVIDERS: ADMIT Internal Medicine; ATTEND Internal Medicine
PROC: 3E0234Z Introduction of Serum, Toxoid and Vaccine into Muscle, Percutaneous Approach (ICD-10-PCS; principal; 2019-04-30)
PROC: 30233N1 Transfusion of Nonautologous Red Blood Cells into Peripheral Vein, Percutaneous Approach (ICD-10-PCS; 2019-05-01)
DX: N39.0 Urinary tract infection, site not specified (principal); N17.9 Acute kidney failure, unspecified; I48.20 Chronic atrial fibrillation, unspecified; S01.111A Laceration without foreign body of right eyelid and periocular area, initial encounter; D50.0 Iron deficiency anemia secondary to blood loss (chronic); I25.10 Atherosclerotic heart disease of native coronary artery without angina pectoris; I10 Essential (primary) hypertension; E78.5 Hyperlipidemia, unspecified; K21.9 Gastro-esophageal reflux disease without esophagitis; E86.0 Dehydration; S09.8XXA Other specified injuries of head, initial encounter; W08.XXXA Fall from other furniture, initial encounter; Y93.89 Activity, other specified; Y92.512 Supermarket, store or market as the place of occurrence of the external cause; Z23 Encounter for immunization; Z79.01 Long term (current) use of anticoagulants
CPT/HCPCS: 36415; 36430; 70450; 71046; 72125; 80048; 80053; 81001; 82272; 82550; 82553; 82607; 82728; 82746; 83540; 83550; 84484; 85025; 85027; 85045; 86850; 86900; 86901; 86920; 87040; 87077; 87086; 87088; 87150; 87186; 90471; 90715; 93005; 93010; 96360; 99285; G0378; J0696; J7030; J7040; J7050; P9016; Q0138